=== PATIENT | male | born 1985 | race Caucasian/White ===

== ENCOUNTER 2019-07-20 10:52 | Emergency (ER) | payer OTHER ==
--- NOTE | 2019-07-20 11:46 | CT ---
EXAM: CT scan cervical spineWithout contrast: HISTORY: Neck pain following injury after being kicked by a horse COMPARISON: None FINDINGS: No evidence for acute fracture or facet dislocation. No significant malalignment. No prevertebral soft tissue swelling. IMPRESSION: No evidence for acute fracture or facet dislocation or other significant acute process.
== END 2019-07-20 12:10 | disposition home or self-care (01) ==
LOC: MADERS 10:52
DX: S13.4XXA Sprain of ligaments of cervical spine, initial encounter (principal); W55.12XA Struck by horse, initial encounter
CPT/HCPCS: 72125

== ENCOUNTER 2022-03-20 19:46 | Emergency (ER) | payer OTHER ==
[2022-03-20 20:17] LABS: Bilirubin Negative (Negative); Blood, Urine Large (Negative); Glucose, Urine (Dipstick) Negative (Negative); Ketone, Urine Negative (Negative); Leukocyte Negative (Negative); Nitrite Negative (Negative); Protein, Urine (Dipstick) Trace mg/dL (Neg-Trace); Urobilinogen 0.2 mg/dL (Less than 2)
[2022-03-20 20:23] LABS: Bacteria/HPF 1+ HPF (None Seen); Clarity Turbid (Clear); RBC/HPF Greater than 50 HPF (0-3); Squamous Epithelial 0-3 HPF (0-3); WBC/HPF 0-3 HPF (0-3)
[2022-03-20] MEDS ORDERED: traMADol HCl 50 MG TAB ONE (20:26)
[2022-03-20] MEDS ORDERED: Ondansetron ODT 4 MG TAB ONE (20:26)
== END 2022-03-20 20:44 | disposition home or self-care (01) ==
LOC: MADERS 19:46
DX: N20.0 Calculus of kidney (principal); F17.220 Nicotine dependence, chewing tobacco, uncomplicated; Z87.442 Personal history of urinary calculi
CPT/HCPCS: 81003; 81015; 99284; Q0162

== ENCOUNTER 2023-12-06 18:28 | Emergency (ER) | payer SELFPAY | END 2023-12-06 18:57 | disposition home or self-care (01) | LOC: MADERS 18:28 | DX: S01.312A Laceration without foreign body of left ear, initial encounter (principal); H60.12 Cellulitis of left external ear; F17.220 Nicotine dependence, chewing tobacco, uncomplicated; W22.8XXA Striking against or struck by other objects, initial encounter | CPT/HCPCS: 99283 ==